=== PATIENT | female | born 1965 | race Caucasian/White ===

== ENCOUNTER → 2017-05-27 | Outpatient (CLI) | payer OTHER ==
[~2017-05-27] MED LIST: ALPRAZOLAM0.25 MG PO; ATENOLOL25 M1 PO; MAGNESIUM400 M1 PO; PAXIL30 MG PO; PROAIR HFA8.5 GM IH; PROTONIX40 MG PO
== END | disposition home or self-care (01) ==
LOC: CDC 09:59
DX: Z01.810 Encounter for preprocedural cardiovascular examination (principal)
CPT/HCPCS: 93000

== ENCOUNTER 2017-06-07 06:55 | Day surgery (SDC) | payer OTHER ==
[~2017-06-07] VITALS: Ht 157.5 cm; Wt 68.0 kg
[2017-06-07 07:16] VITALS: BP 123/76
[2017-06-07 09:09] VITALS: BP 100/70
[2017-06-07 09:56] VITALS: BP 121/65
== END 2017-06-07 10:30 | disposition home or self-care (01) ==
LOC: SDC 06:55
PROC: 0U9MXZZ Drainage of Vulva, External Approach (ICD-10-PCS; principal; 2017-06-07)
DX: N76.4 Abscess of vulva (principal)
CPT/HCPCS: 87205; J0690; J1100; J1885; J2250; J2405; J3010